=== PATIENT | male | born 1980 | race Caucasian/White ===

== ENCOUNTER 2024-03-07 06:48 | Emergency (ER) | payer SELFPAY ==
[~2024-03-07] VITALS: Ht 172.7 cm; Wt 93.0 kg
[2024-03-07] MEDS ORDERED: Dexamethasone Sod Phos 10 MG/ML 1ML VIAL PO ONE (07:15)
[2024-03-07] MEDS ORDERED: Cleocin HCl300 MG PO (07:18)
== END 2024-03-07 07:26 | disposition home or self-care (01) ==
LOC: ER 06:48
DX: T78.3XXA Angioneurotic edema, initial encounter (principal)
CPT/HCPCS: J1100